=== PATIENT | female | born 1975 | race Caucasian/White ===

== ENCOUNTER 2018-06-30 20:59 | Emergency (ER) | payer OTHER ==
--- NOTE | 2018-06-30 21:16 | EDPHY ---
H & P Time Seen by Provider: 06/30/18 21:14 HPI/ROS: Chief Complaint: Chest tightness HPI: 42-year-old woman's been having intermittent episodes of chest tightness for the last day. She states the comes in waves. Describes a central tightness at worst 3/10. No associated shortness of breath. She has had viral URI symptoms recently. She was started on an antibiotic for sinus infection a couple days ago. No cough. No fevers or chills. Discomfort in her central chest. Nonradiating. There are no aggravating or alleviating factors. No recent travel or periods of immobility. No leg pain or swelling. Mom has a history of some sort of heart trouble but unknown if she has a history of coronary artery disease. No lightheadedness or fainting. Symptoms are not exertional. The symptoms last for few minutes and go away. She is currently symptom free. ROS: 10 systems were reviewed and were negative except those elements noted in the HPI. PMH: Denies Social History: No smoking, occasional alcohol, no recreational drug use Family History: non-contributory Physical Exam: Gen: Awake, Alert, No Distress HEENT: Nose: no rhinorrhea Eyes: PERRLA, EOMI Mouth: Moist mucosa Neck: Supple, no JVD Chest: nontender, lungs clear to auscultation Heart: S1, S2 normal, no murmur Abd: Soft, non-tender, no guarding Back: no CVA tenderness, no midline tenderness Ext: no edema, non-tender Skin: no rash Neuro: CN II-XII intact, Sensation grossly intact, Strength 5/5 in bilateral upper and lower extremities Constitutional: Initial Vital Signs Temperature (C) 37 C 06/30/18 21:07 Heart Rate 90 06/30/18 21:07 Respiratory Rate 16 06/30/18 21:07 Blood Pressure 141/96 H 06/30/18 21:07 O2 Sat (%) 96 06/30/18 21:07 O2 Delivery Mode Room Air Allergies/Adverse Reactions: No Known Allergies Allergy (Unverified 06/30/18 21:15) Home Medications: Medication Instructions Recorded Cefuroxime 06/30/18 Spironolactone 06/30/18 Medical Decision Making - Diagnostics EKG Interpretation: ECG time 9:20 p.m., sinus rhythm with a rate of 90, normal axis, normal intervals, no acute ST or T-wave changes. Impression: Normal ECG. ED Course/Re-evaluation: Troponin is negative. Patient's symptoms are uncharacteristic for acute coronary syndrome. She has really no significant risk factors. ECG is normal. Troponin is normal. She is on antibiotics for sinusitis not think this is more likely symptoms secondary to her current sinus infection. She has been reassured. She has been given return precautions. Follow up with primary care physician. - Data Points Laboratory Results: 06/30/18 21:32 POC Troponin I 0.00 ng/mL ng/mL (0.00-0.08) Point of Care Test Results: Chemistry 06/30/18 21:32 POC Troponin I 0.00 ng/mL ng/mL (0.00-0.08) Departure - Departure Disposition: Home, Routine, Self-Care Clinical Impression: Atypical chest pain Condition: Good Instructions: Chest Pain (ED) Additional Instructions: Follow up with primary care physician in 3-4 days if symptoms are not improving. Return to the emergency department for worsening chest pain, shortness of breath , fainting, uncontrolled cough, fevers, or any other concerns. Referrals: Nick Faustin MD [Primary Care Provider] - As per Instructions
--- NOTE | 2018-06-30 21:40 | CPEKG ---
Test Reason : OPEN Blood Pressure : / mmHG Vent. Rate : 090 BPM Atrial Rate : 089 BPM P-R Int : 124 ms QRS Dur : 084 ms QT Int : 361 ms P-R-T Axes : 050 043 059 degrees QTc Int : 442 ms Sinus rhythm Confirmed by Jason Eldridge ([id number]) on 06/30/2018 9:39:41 PM Referred By: Jason Eldridge Confirmed By:Jason Eldridge
[2018-06-30 22:25] VITALS: BP 129/78
== END 2018-06-30 22:20 | disposition home or self-care (01) ==
LOC: CED 20:59
DX: R07.89 Other chest pain (principal)
CPT/HCPCS: 84484-ER; 99284-ER